=== PATIENT | female | born 1945 | race Caucasian/White ===

== ENCOUNTER 2017-05-20 05:57 | Emergency (ER) | payer MEDICARE ==
[~2017-05-20] VITALS: Ht 160 cm; Wt 59.0 kg
[2017-05-20] MEDS ORDERED: CARVEDILOL3.125 MG PO (06:21)
[2017-05-20] MEDS ORDERED: ISOSORB MONO30 MG PO (06:22)
[2017-05-20] MEDS ORDERED: LIPITOR20 MG PO (06:22)
[2017-05-20] MEDS ORDERED: PLAVIX75 MG PO (06:23)
[2017-05-20] MEDS ORDERED: ASPIRIN81 MG PO (06:23)
[2017-05-20] MEDS ORDERED: ASPERCREME LIDOCA41 TOP (06:45)
[2017-05-20] MEDS ORDERED: VOLTAREN1%GEL TOP (06:45)
[2017-05-20 06:55] VITALS: BP 139/65
== END 2017-05-20 06:55 | disposition home or self-care (01) ==
LOC: ED 05:57
DX: M54.31 Sciatica, right side (principal); M62.838 Other muscle spasm; M25.551 Pain in right hip

== ENCOUNTER 2021-03-31 13:06 | Emergency (ER) | payer MEDICARE ==
[~2021-03-31] VITALS: Ht 160 cm; Wt 70.0 kg
[~2021-03-31 13:06] MED LIST: ASPERCREME LIDOCA41 TOP; ASPIRIN81 MG PO; CARVEDILOL3.125 MG PO; ISOSORB MONO30 MG PO; LIPITOR20 MG PO; PLAVIX75 MG PO; VOLTAREN1%GEL TOP
[2021-03-31] MEDS ORDERED: OMNI-PAC300 MG PO (16:36)
[2021-03-31 16:43] VITALS: BP 176/80
== END 2021-03-31 16:47 | disposition home or self-care (01) ==
LOC: ED 13:06
DX: M79.622 Pain in left upper arm (principal); I10 Essential (primary) hypertension; E78.00 Pure hypercholesterolemia, unspecified; I25.2 Old myocardial infarction; Z95.1 Presence of aortocoronary bypass graft; Z95.5 Presence of coronary angioplasty implant and graft